=== PATIENT | female | born 1960 | race Caucasian/White ===

== ENCOUNTER 2016-12-01 10:19 | Emergency (ER) | payer BC ==
[~2016-12-01] VITALS: Ht 157.5 cm; Wt 70.6 kg
[~2016-12-01 10:19] MED LIST: ALBUTEROL SULF8.5 GM IH; ASPIR 8181 M1 PO; ASPIRIN81 M2 PO; CELEXA40 MG PO; COZAAR100 MG PO; LOSARTAN POTAS100 MG PO; MECLIZINE HCL25 MG PO; OMEPRAZOLE20 MG PO; SYMBICORT60 INHALAT IH; ZOFRAN ODT4 MG PO
[2016-12-01 11:10] LABS: MCH 28.8 PG (29.0-34.0); MCV 84.7 FL (83-99); MEAN PLAT.VOLUME 8.4 uM^3 (9.5-12.4); PLATELET COUNT 234 K/uL (156-360); RBC DIS.WIDTH-CV 12.5 % (11.8-14.6); RBC DIS.WIDTH-SD 38.1 % (39-53); RED BLOOD COUNT 4.72 M/uL (3.80-5.20); WHITE BLOOD COUNT 8.2 K/uL (4.1-10.2)
[2016-12-01 11:12] LABS: ADD MIUA? YES; BILIRUBIN NEGATIVE; BLOOD NEGATIVE; COLOR YELLOW ((YELLOW)); GLUCOSE (STRIP) NEGATIVE; KETONES NEGATIVE; LEUKOCYTES SMALL; NITRITE NEGATIVE; PROTEIN (STRIP) NEGATIVE; SPECIFIC GRAVITY 1.017 (1.000-1.030); UROBILINOGEN 0.2 MG/DL (0.2-1.0)
[2016-12-01 11:22] LABS: CHLORIDE 106 mEq/L (99-109); SODIUM 138 mEq/L (136-147)
[2016-12-01 11:24] LABS: GLUCOSE 118 mg/dL (70-99)
[2016-12-01 11:25] LABS: ANION GAP 11 MEQ/L (2-14)
[2016-12-01 11:27] LABS: ALKALINE PHOSPHATASE 104 IU/L (3-129)
[2016-12-01 11:28] LABS: BACTERIA RARE /HPF; EPITHELIAL CELLS 1+ /HPF; GFR ESTIMATE (CALCULATED) > 59 mL/min/; MUCUS 1+ /LPF; RED BLOOD CELLS 0-5 /HPF (0-5); UCUL ADDED? NO; WHITE BLOOD CELLS 0-5 /HPF (0-5)
[2016-12-01 11:29] LABS: UREA NITROGEN (BUN) 12 mg/dL (9-23)
[2016-12-01 11:31] LABS: LIPASE 6 U/L (1.0-51.0)
[2016-12-01 11:33] LABS: TROP-I INTERPRETATION NEGATIVE; TROPONIN-I < 0.01 ng/mL (0.0-0.30)
[2016-12-01] MEDS ORDERED: BENTYL10 MG PO (13:24)
[2016-12-01] MEDS ORDERED: ZOFRAN ODT4 MG PO (13:24)
[2016-12-01 13:52] VITALS: BP 159/86
== END 2016-12-01 13:53 | disposition home or self-care (01) ==
LOC: EME 10:19
PROVIDERS: Nurse Practitioner Family
DX: N83.209 Unspecified ovarian cyst, unspecified side (principal); R42 Dizziness and giddiness; R11.2 Nausea with vomiting, unspecified; I10 Essential (primary) hypertension
CPT/HCPCS: 71020; 74177; 80053; 81003; 83690; 84484; 85027; 93005; 99281; 99285; J2405; J7030

== ENCOUNTER 2017-06-09 11:23 | Observation (INO) | payer BC ==
[~2017-06-09] VITALS: Ht 162.6 cm; Wt 72.9 kg
[~2017-06-09 11:23] MED LIST changes: +ADVAIR 250/501 DISK IH; +BENTYL10 MG PO; +LANSOPRAZOLE30 MG PO; -OMEPRAZOLE20 MG PO; -SYMBICORT60 INHALAT IH
[2017-06-09 12:01] LABS: EOSINOPHIL (%) 1.7 % (0-5); EOSINOPHIL COUNT 0.1 K/uL (0-0.3); HEMATOCRIT 42.5 % (36.0-46.0); IMMATURE GRANULOCYTE (%) 0.1 % (0.0-0.7); INSTRUMENT ABS NEUTROPHIL CT 4.1 K/uL; LYMPHOCYTE COUNT 2.5 K/uL (1.0-2.8); MCH 28.5 PG (29.0-34.0); MCHC 32.7 G/DL (30.0-36.0); MCV 87.3 FL (83-99); MEAN PLAT.VOLUME 8.7 uM^3 (9.5-12.4); MONOCYTE (%) 7.1 % (3-12); MONOCYTE COUNT 0.5 K/uL (0-0.8); NEUTROPHIL (%) 56.1 % (45-76); NEUTROPHIL COUNT 4.1 K/uL (1.8-6.4); PLATELET COUNT 231 K/uL (156-360); RBC DIS.WIDTH-CV 13.2 % (11.8-14.6); RBC DIS.WIDTH-SD 41.5 % (39-53); RED BLOOD COUNT 4.87 M/uL (3.80-5.20); WHITE BLOOD COUNT 7.2 K/uL (4.1-10.2)
[2017-06-09 12:16] LABS: CHLORIDE 108 mEq/L (99-109); POTASSIUM 3.8 mEq/L (3.7-5.4); SODIUM 138 mEq/L (136-147)
[2017-06-09 12:18] LABS: GLUCOSE 100 mg/dL (70-99)
[2017-06-09 12:19] LABS: ANION GAP 8 MEQ/L (2-14)
[2017-06-09 12:22] LABS: GFR ESTIMATE (CALCULATED) > 59 mL/min/
[2017-06-09 12:23] LABS: UREA NITROGEN (BUN) 13 mg/dL (9-23)
[2017-06-09 12:25] LABS: TROP-I INTERPRETATION NEGATIVE; TROPONIN-I < 0.01 ng/mL (0.0-0.30)
[2017-06-09 12:27] LABS: PROTHROMBIN TIME 11.5 SEC (10.2-12.9)
[2017-06-09 12:30] LABS: PTT 30.8 SEC (25-37)
[2017-06-09] MEDS ORDERED: AMOXICILLIN875 MG PO (14:08)
[2017-06-09] MEDS ORDERED: CYANOCOBALAM1000 MCG PO (14:08)
[2017-06-09] MEDS ORDERED: EXCEDRIN MIGRA1 EAC3 PO (14:09)
[2017-06-09 18:06] VITALS: BP 130/76
[2017-06-09 19:00] VITALS: BP 111/78
[2017-06-09 20:49] LABS: TROP-I INTERPRETATION NEGATIVE; TROPONIN-I < 0.01 ng/mL (0.0-0.30)
[2017-06-09 23:00] VITALS: BP 101/52
[2017-06-10 03:45] VITALS: BP 99/54
[2017-06-10 04:57] LABS: TROP-I INTERPRETATION NEGATIVE; TROPONIN-I < 0.01 ng/mL (0.0-0.30)
[2017-06-10 05:34] LABS: HEMATOCRIT 41.5 % (36.0-46.0); MCH 28.1 PG (29.0-34.0); MCHC 31.8 G/DL (30.0-36.0); MCV 88.3 FL (83-99); MEAN PLAT.VOLUME 8.8 uM^3 (9.5-12.4); PLATELET COUNT 242 K/uL (156-360); RBC DIS.WIDTH-CV 13.2 % (11.8-14.6); RBC DIS.WIDTH-SD 42.7 % (39-53); WHITE BLOOD COUNT 8.6 K/uL (4.1-10.2)
[2017-06-10 06:02] LABS: ANION GAP 8 MEQ/L (2-14); CHLORIDE 108 MEQ/L (99-109); GFR ESTIMATE (CALCULATED) > 59 mL/min/; GLUCOSE 103 mg/dL (70-99); SAMPLE HEMOLYSIS CHECK 0; SAMPLE ICTERIC CHECK 0; SAMPLE LIPEMIA CHECK 0; SODIUM 141 MEQ/L (136-147); UREA NITROGEN (BUN) 15 mg/dL (9-23)
[2017-06-10 06:06] LABS: POTASSIUM 4.8 MEQ/L (3.7-5.4)
[2017-06-10 07:45] VITALS: BP 96/45
[2017-06-10 11:27] VITALS: BP 101/56
[2017-06-10] MEDS ORDERED: XARELTO20 MG PO (12:01)
[2017-06-10] MEDS ORDERED: CARDIZEM CD,CA240 MG PO (12:02)
== END 2017-06-10 14:29 | disposition home or self-care (01) ==
LOC: EME 11:23 → EDOF 13:30 → 4EAST 13:30 → ENRESERV 13:51 → 4EAST 17:32
PROVIDERS: Emergency Medicine; Family Medicine
DX: I48.91 Unspecified atrial fibrillation (principal); R07.89 Other chest pain; J18.9 Pneumonia, unspecified organism; R00.0 Tachycardia, unspecified; I10 Essential (primary) hypertension; E78.5 Hyperlipidemia, unspecified; Z63.79 Other stressful life events affecting family and household; F32.9 Major depressive disorder, single episode, unspecified; I45.10 Unspecified right bundle-branch block; J45.909 Unspecified asthma, uncomplicated; K21.9 Gastro-esophageal reflux disease without esophagitis; Z82.49 Family history of ischemic heart disease and other diseases of the circulatory system; Z83.3 Family history of diabetes mellitus; Z80.9 Family history of malignant neoplasm, unspecified
CPT/HCPCS: 71010; 80048; 84443; 84484; 85025; 85027; 85610; 85730; 93005; 99202; 99281; 99285; G0378; J0692; J7050